=== PATIENT | female | born 1960 | race Caucasian/White ===

== ENCOUNTER 2023-06-17 14:53 | Emergency (ER) | payer BC, SELFPAY ==
[2023-06-17 14:55] VITALS: BP 135/81
[2023-06-17 15:25] LABS: % Basophils 1.6 % (0-2); % Eosinophils 2.6 % (0-6); % Immature Granulocytes 1.2 % (0-0.5); % Lymphocytes 18.9 % (20.5-51.1); % Monocytes 13.7 % (1.7-9.3); ALT (SGPT) 37 U/L (0-35); AST (SGOT) 90 U/L (14-36); Absolute Basophils 0.1 10^3/uL (0-0.2); Absolute Eosinophils 0.2 10^3/uL (0-0.7); Absolute Immature Granulocytes 0.1 10^3/uL (0-0.05); Absolute Lymphocytes 1.3 10^3/uL (1.2-3.4); Absolute Monocytes 0.9 10^3/uL (0.1-0.6); Absolute Neutrophils 4.3 10^3/uL (1.4-6.5); Albumin 2.5 g/dl (3.5-5.0); Alkaline Phosphatase 211 U/L (38-126); Blood Urea Nitrogen < 2 mg/dl (7-17); Calcium 7.9 mg/dl (8.4-10.2); Carbon Dioxide 26 mmol/L (22-30); Chloride 100 mmol/L (98-107); Glucose 125 mg/dl (70-99); Hematocrit 34.1 % (37.0-47.0); Hemoglobin 11.4 g/dL (12.0-16.0); Lipase 93 U/L (23-300); Mean Corp Hgb Conc. 33.4 g/dL (33.0-37.0); Mean Corpuscular Hgb 32.5 pg (27.0-31.0); Mean Corpuscular Volume 97.2 fL (81.0-99.0); Mean Platelet Volume 8.5 fL (7.4-10.4); Nucleated Red Blood Cells % 0 %; Platelet Count 280 10^3/uL (130-400); Potassium 3.1 mmol/L (3.5-5.1); Red Blood Cell Count 3.51 10^6/uL (4.20-5.40); Red Cell Dist. Width 15.7 % (11.5-14.5); Sodium 129 mmol/L (135-145); Total Bilirubin 4.8 mg/dl (0.2-1.3); Total Protein 7.3 g/dl (6.3-8.2); White Blood Cell Count 6.9 10^3/uL (4.8-10.8); eGFR > 60.00
--- NOTE | 2023-06-17 17:03 | ED.GENMED ---
History of Present Illness
General
Chief Complaint: Abdominal Symptoms
Source: patient and spouse
Exam Limitations: none
Time Seen by Provider: 06/17/23 16:18
Travel History
Have you had any contact with someone who has COVID-19?: No
Do you have any symptoms of coronavirus? Fever > 100 degrees, chills, cough, shortness of breath, sore throat, loss of taste or smell, muscle aches, or headache?: No
History of Present Illness
History of Present Illness:
62-year-old female who presents with distended abdomen. She denies pain. She states she just feels a little full. She has a history of cirrhosis and is being followed by Dr. Cook. The patient states she was seen by her primary care doctor and
was advised to come for evaluation. She recently had an upper endoscopy and a colonoscopy. Patient states she is feels a little short of breath when she lays flat. Symptoms progressed over the last probably 2 weeks.
Past History
Past History
ED Past Medical History: Other (Alcoholic cirrhosis of the liver,)
Social History
Alcohol: Former
Phy Exam
Physical Exam
Physical Exam:
CONSTITUTIONAL Patient alert and oriented to person, place and time. Well-appearing. Vital signs reviewed.
HEAD atraumatic, normocephalic.
EYES eyelids normal to inspection, Extraocular muscles intact, Conjunctiva normal, Sclera normal.
NECK normal range of motion, Trachea midline, no jugular venous distention.
RESPIRATORY CHEST No respiratory distress noted, Chest expansion equal, Bilateral breath sounds clear.
CARDIOVASCULAR regular rate and rhythm, Heart sounds normal.
ABDOMEN moderate distention with a fluid wave. Ascites noted.
BACK normal inspection, no obvious deformities
UPPER EXTREMITY range of motion normal, Motor strength normal, no cyanosis, no edema.
LOWER EXTREMITY range of motion normal, Motor strength normal, no cyanosis, no edema. Healing injury to the right lower extremity
NEURO Speech normal, No focal motor deficits, [place] coma scale 15, Memory normal, Cranial Nerves intact to screening exam.
SKIN skin warm, dry, and normal in color.
Course
Orders/Labs/Results
Orders:
Orders
06/17/23 15:03
Complete Blood Count/With Diff Urgent
Comprehensive Metabolic Panel Urgent
Lipase Urgent
Abnormal Lab Results
06/17/23
15:03
RBC 3.51 L 10^6/uL
(4.20-5.40)
Hgb 11.4 L g/dL
(12.0-16.0)
Hct 34.1 L %
(37.0-47.0)
MCH 32.5 H pg
(27.0-31.0)
RDW 15.7 H %
(11.5-14.5)
Abs Immat Gran (auto) 0.1 H 10^3/uL
(0-0.05)
Absolute Monos (auto) 0.9 H 10^3/uL
(0.1-0.6)
Immature Gran % 1.2 H %
(0-0.5)
Lymphocytes % 18.9 L %
(20.5-51.1)
Monocytes % 13.7 H %
(1.7-9.3)
Sodium 129 L mmol/L
(135-145)
Potassium 3.1 L mmol/L
(3.5-5.1)
BUN < 2 L mg/dl
(7-17)
Creatinine 0.4 L mg/dL
(0.6-1.0)
Glucose 125 H mg/dl
(70-99)
Calcium 7.9 L mg/dl
(8.4-10.2)
Total Bilirubin 4.8 H mg/dl
(0.2-1.3)
AST 90 H U/L
(14-36)
ALT 37 H U/L
(0-35)
Alkaline Phosphatase 211 H U/L
(38-126)
Albumin 2.5 L g/dl
(3.5-5.0)
06/17/23 15:03
06/17/23 15:03
Vital Signs
Initial and Last Documented VS:
Initial Vital Signs
Temp Pulse Resp BP Pulse Ox
98.1 F 104 18 135/81 94
06/17/23 14:55 06/17/23 14:55 06/17/23 14:55 06/17/23 14:55 06/17/23 14:55
Last Documented Vital Signs
Temp Pulse Resp BP Pulse Ox
98.1 F 104 18 135/81 94
06/17/23 14:55 06/17/23 14:55 06/17/23 14:55 06/17/23 14:55 06/17/23 14:55
MDM/Problems Addressed
MDM/Problems Addressed:
Ascites, chronic liver disease
*Pulse Oximetry
Patient hypoxic: no
*Critical Care Note
Total Time (30-74mins, 75-104mins- exclusive of procedures): Not Applicable
Data Reviewed
Source: patient
Further Testing Considered But Not Given:
Consider CT imaging but clearly has ascites on exam
Patient Management
Discussion with other providers: Detector Car Operator (Gastroenterology)
Escalation/DeEscalation of care consider admission/obs:
Patient is quite stable. Does have new ascites. Case discussed with GI. Case was also discussed with interventional radiology team. Interventional radiology to call her tomorrow to arrange paracentesis. The patient will connect with her
car hopper for orders. Patient is stable. No evidence of SBP. No respiratory distress
ED Attending Note
-
Portions of this chart may have been created with voice recognition software.� Occasional wrong word or��sound alike� substitutions may have occurred due to the inherent limitations of voice recognition software.
Discharge Plan
Departure
Patient Disposition: Home (Routine Discharge)
Date of Disposition: 06/17/23
Time of Disposition: 17:06
Patient with high blood pressure during this ER visit?: No
Discharge Problem:
Abdominal ascites, Cirrhosis of liver
Instructions: Fluid in the Belly (Ascites) (DC)
Activity Restrictions/Additional Instructions:
Please call your car hopper tomorrow. It is important that your physician gives orders for paracentesis testing of the fluid and albumin infusion if needed. The interventional radiology team will call you tomorrow to help plan an
appointment for a paracentesis (draining of the abdominal fluid). Return immediately for fevers, difficulty breathing, worsening symptoms or any other concerns.
Interventions
Interventions:
*Risk Screen - Suicide Last Done: 06/17/23 14:55
*General Assessment Last Done: 06/17/23 14:55
*Neglect/Abuse Screening Last Done: 06/17/23 14:55
*ED COVID-19 Vaccine History Last Done: 06/17/23 14:55
[2023-06-17 17:20] VITALS: BP 117/67
== END 2023-06-17 17:24 | disposition home or self-care (01) ==
LOC: EMR 14:53
PROVIDERS: EMERGENCY PHYSICIAN Emergency Medicine; FAMILY PHYSICIAN Nurse Practitioner Adult Health
DX: K70.31 Alcoholic cirrhosis of liver with ascites (principal)
CPT/HCPCS: 99283; 80053; 83690; 85025

== ENCOUNTER → 2023-06-19 07:20 | Outpatient (REF) | payer BC, SELFPAY ==
[2023-06-19 07:35] VITALS: BP 122/61; BP_SYST 93
[2023-06-19 08:41] VITALS: BP 115/60; BP_SYST 87
[2023-06-19 08:46] VITALS: BP 129/64
[2023-06-19 09:14] LABS: Body Fluid WBC 296 /CUMM
[2023-06-19 09:15] LABS: Body Fluid Mononuclear 90.2 %; Body Fluid Polymorphonuclear 9.8 %
[2023-06-19 09:20] LABS: Body Fluid Second Tech HB
[2023-06-19 09:29] LABS: Body Fluid Albumin < 1.0 g/dl; Body Fluid Protein < 2.0 g/dl
== END ==
LOC: RADI 07:20
PROVIDERS: ATTENDING PHYSICIAN Internal Medicine Transplant Hepatology; FAMILY PHYSICIAN Nurse Practitioner Adult Health
DX: R18.8 Other ascites (principal)
CPT/HCPCS: 88305; 49083; 82042; 84157; 87015; 87070; 87205; 88112; 88341; 88342; 89051